=== PATIENT | male | born 1955 | race Caucasian/White ===

== ENCOUNTER 2016-09-08 19:24 | Inpatient (IN) ==
[2016-09-08] MEDS ORDERED: ASPIRIN PO STA (19:36)
[2016-09-08 19:50] LABS: MANUAL DIFF NEEDED? NO
[2016-09-08 19:54] LABS: BASO% 0.5 % (0.0-0.8); EOS# 0.14 X1000 (0.0-0.7); EOS% 2.1 % (0.0-10.0); HEMATOCRIT 43.5 % (42.0-52.0); HEMOGLOBIN 14.8 g/dL (14.0-18.0); IMM GRAN# 0.02 X1000 (0.0-0.04); IMM GRAN% 0.3 % (0.0-0.5); LYMPH# 1.95 X1000 (1.2-3.4); LYMPH% 29.7 % (20.5-51.1); MCH 34.6 PG (27-31); MCV 101.6 FL (81-99); MONO# 1.03 X1000 (0.11-0.59); MONO% 15.7 % (1.7-9.3); MPV 10.7 FL (7.4-10.4); NEUT% 51.7 % (42.2-75.2); PLT 132 X1000 (130-400); RBC 4.28 XMIL (4.7-6.1)
[2016-09-08 20:04] LABS: INR 0.97; PROTIME 10.2 Seconds (9.2-11.7); PTT 24.5 Seconds (22.0-36.0)
[2016-09-08] MEDS ORDERED: LOPRESSOR IV ONE (20:13)
--- NOTE | 2016-09-08 20:19 | PROVIDER DOCUMENTATION ---
HPI-Chest Pain - General Chief Complaint: B/P Problems Stated Complaint: HIGH BLOOD PRESSURE Time Seen by Provider: 09/08/16 20:14 Source: patient Allergies/Adverse Reactions: Patient Allergies Allergy/AdvReac Type Severity Reaction Status Date / Time lisinopril Allergy SWELLING Verified 09/08/16 20:16 Home Medications: Home Medication List Medication Instructions Recorded Confirmed Last Taken Type Hydrochlorothiazide 25 mg PO DAILY #30 tablet 09/08/16 Unknown Rx - History of Present Illness-CP Nature of Presenting Problem: 61 yom c/o high blood pressure due to noncompliance with medication, chest pain , SOB, Blurred vision, and headache. Pt does not take his BP medications at home anymore due to they make his legs hurt. Mark pain does not radiate anywhere at this time. No nausea/vomiting. The SOB is only mild. With High BP patient also has headache and blurred vision. No weakness at this time. Location: reports: substernal Chest Pain Radiation: reports: no radiation Quality of Pain: reports: pressure Severity in ED: mild Onset/Duration: 4-6 hours ago Timing: still present Context/Activities at Onset: reports: light activity Modifying Factors: improves with: nothing Associated Symptoms: reports: headache, shortness of breath Review of Systems - Adult - REVIEW OF SYSTEMS - ADULT Constitutional: reports: see HPI Eyes: reports: blurred vision Ears, Nose, Mouth & Throat: reports: no symptoms reported Cardiovascular: reports: see HPI, chest pain Respiratory: reports: see HPI, shortness of breath Gastrointestinal: reports: no symptoms reported Genitourinary: reports: no symptoms reported Musculoskeletal: reports: no symptoms reported Integumentary: reports: no symptoms reported Neurological: reports: no symptoms reported All Other Systems: Reviewed and Negative Past History - Adult - PAST MEDICAL HISTORY-ADULT Review of Records: reports: Old Records Reviewed, Nursing Assessment Review, Medications Reviewed, Social history reviewed & non-contributory. Major Childhood Illnesses: reports: denies history Cardiovascular: reports: HTN Respiratory: reports: denies history Gastrointestinal: reports: denies history, other (appendectomy) Obstetrical/Gynecological: reports: denies history Genitourinary: reports: denies history Musculoskeletal: reports: denies history, other (fx right patella in the past) Neurological: reports: denies history Endocrine/Immune: reports: denies history Other Conditions: reports: denies history - IMMUNIZATION STATUS Childhood Immunizations: See Nurse Assessment Flu Vaccine: See Nurse Assessment - FAMILY HISTORY Family History: reviewed, not pertinent - SOCIAL HISTORY Smoking: cigarettes Physical Exam-General - PHYSICAL EXAM-ADULT Initial Vital Signs Reviewed: Yes - CONSTITUTIONAL General Appearance: appears well, alert, no apparent distress - EYES Eyes: PERRL/EOMI, pink conjunctivae - HEAD, EARS, NOSE, MOUTH & THROAT HENMT: normocephalic/atraumatic, moist mucous membranes, normal ENT inspection, TMs normal, pharynx normal - NECK Neck: non-tender, full range of motion, supple - RESPIRATORY Respiratory: chest non-tender, no pleuratic chest pain, no respiratory distress , no accessory muscle use, rhonchi - CARDIOVASCULAR Cardiovascular: normal peripheral pulses, regular rate, rhythm, no edema, no gallop, no JVD, no murmur - GASTROINTESTINAL (ABDOMEN) Abdominal Exam: normal bowel sounds, non tender, soft, no organomegaly, no pulsatile mass - LYMPHATIC Lymphatic: no adenopathy - MUSCULOSKELETAL Back Exam: normal inspection, no CVA tenderness, no vertebral tenderness Extremity: normal range of motion, non-tender, normal gait, normal inspection, no pedal edema, no calf tenderness, normal capillary refill, pelvis stable - SKIN Integumentary: normal color, normal turgor, warm/dry - NEUROLOGIC Neurologic: grossly normal - PSYCHIATRIC Psych/Mental Status: oriented x 3 Progress - PLAN OF CARE/RESULTS Progress/Plan/Lab Results: Vital Signs - 8 hr 09/08/16 19:26 09/08/16 22:00 09/08/16 22:15 Temperature 98.0 F 98.2 F Pulse Rate 103 H 82 77 Respiratory Rate 22 18 14 Blood Pressure 171/104 169/104 155/94 O2 Sat by Pulse Oximetry 98 98 99 09/08/16 23:28 Temperature 98.2 F Pulse Rate 87 Respiratory Rate 17 Blood Pressure 167/93 O2 Sat by Pulse Oximetry 100 Laboratory Results - last 24 hr 09/08/16 09/08/16 09/08/16 19:34 19:34 19:34 WBC 6.56 RBC 4.28 L Hgb 14.8 Hct 43.5 MCV 101.6 H MCH 34.6 H MCHC 34.0 RDW Std Deviation 14.3 Plt Count 132 MPV 10.7 H Immature Gran % (Auto) 0.3 Neut % (Auto) 51.7 Lymph % (Auto) 29.7 Sibley % (Auto) 15.7 H Eos % (Auto) 2.1 Baso % (Auto) 0.5 Immature Gran # (Auto) 0.02 Neut # (Auto) 3.39 Lymph # (Auto) 1.95 Sibley # (Auto) 1.03 H Eos # (Auto) 0.14 Baso # (Auto) 0.03 PT INR PTT (Actin FS) D-Dimer 0.65 H Sodium 142 Potassium 3.7 Chloride 93 L Carbon Dioxide 25 Anion Gap 24 BUN 7 L Creatinine 1.0 Estimated GFR/1.73 m2 > 60 BUN/Creatinine Ratio 7 Glucose 114 H Calculated Osmolality 282 Calcium 9.8 Magnesium 1.2 L Total Bilirubin 0.33 AST 98 H ALT 84 H Alkaline Phosphatase 69 Creatine Kinase 99 Troponin T Ifz-Z-Eanolmtjnfy Pept Total Protein 7.9 Albumin 4.2 Globulin 3.7 Albumin/Globulin Ratio 1.1 09/08/16 09/08/16 09/08/16 19:34 19:34 19:34 WBC RBC Hgb Hct MCV MCH MCHC RDW Std Deviation Plt Count MPV Immature Gran % (Auto) Neut % (Auto) Lymph % (Auto) Sibley % (Auto) Eos % (Auto) Baso % (Auto) Immature Gran # (Auto) Neut # (Auto) Lymph # (Auto) Sibley # (Auto) Eos # (Auto) Baso # (Auto) PT 10.2 INR 0.97 PTT (Actin FS) 24.5 D-Dimer Sodium Potassium Chloride Carbon Dioxide Anion Gap BUN Creatinine Estimated GFR/1.73 m2 BUN/Creatinine Ratio Glucose Calculated Osmolality Calcium Magnesium Total Bilirubin AST ALT Alkaline Phosphatase Creatine Kinase Troponin T < 0.010 Kut-Y-Cjhmajjyems Pept 68 Total Protein Albumin Globulin Albumin/Globulin Ratio 09/08/16 21:59 WBC RBC Hgb Hct MCV MCH MCHC RDW Std Deviation Plt Count MPV Immature Gran % (Auto) Neut % (Auto) Lymph % (Auto) Sibley % (Auto) Eos % (Auto) Baso % (Auto) Immature Gran # (Auto) Neut # (Auto) Lymph # (Auto) Sibley # (Auto) Eos # (Auto) Baso # (Auto) PT INR PTT (Actin FS) D-Dimer Sodium Potassium Chloride Carbon Dioxide Anion Gap BUN Creatinine Estimated GFR/1.73 m2 BUN/Creatinine Ratio Glucose Calculated Osmolality Calcium Magnesium Total Bilirubin AST ALT Alkaline Phosphatase Creatine Kinase Troponin T < 0.010 Zof-G-Syyjfoktdak Pept Total Protein Albumin Globulin Albumin/Globulin Ratio Orders Category Date Time Status Cardiac Monitoring DIRECTED Care 09/08/16 19:36 Active Saline Loc NOW Care 09/08/16 19:36 Active CHEST-2 VIEWS [RAD] Stat Exams 09/08/16 19:36 Completed HEAD W/O CONTRAST [CT] Stat Exams 09/08/16 20:13 Completed CBC WITH ELECTRONIC DIFF [HEME] Stat Lab 09/08/16 19:34 Completed CK PROFILE [SP CHEM] Stat Lab 09/08/16 19:34 Completed COMPREHENSIVE METABOLIC PANEL [CHEM] Stat Lab 09/08/16 19:34 Completed D-DIMER [CHEM] Stat Lab 09/08/16 19:34 Completed MAGNESIUM [CHEM] Stat Lab 09/08/16 19:34 Completed PRO B-NATRIURETIC PEPTIDE Stat Lab 09/08/16 19:34 Completed PROTIME WITH INR [COAG] Stat Lab 09/08/16 19:34 Completed PTT [COAG] Stat Lab 09/08/16 19:34 Completed TROPONIN T Stat Lab 09/08/16 19:34 Completed TROPONIN T Stat Lab 09/08/16 21:59 Completed Aspirin Med 09/08/16 19:36 Discontinued 325 mg PO STAT STA Metoprolol [Lopressor] Med 09/08/16 20:13 Discontinued 5 mg IV NOW ONE Morphine Med 09/09/16 00:06 Once 4 mg IV NOW ONE Nitroglycerin Med 09/09/16 00:04 Discontinued 1 inch TOP NOW ONE Ondansetron [Zofran] Med 09/09/16 00:06 Once 4 mg IV NOW ONE EKG [EKG] Stat Ther 09/08/16 19:30 Ordered EKG [EKG] Stat Ther 09/08/16 21:40 Ordered EKG [EKG] Stat Ther 09/08/16 23:32 Ordered Upon ready to discharge patient he became nauseated blood pressure back up, developed worse chest pain and very diaphoretic. Will admit for further evaluation. Result Diagrams: 09/08/16 19:34 09/08/16 19:34 - XRAY 1 XRAY: Bilateral XRAY Study: Chest Impression: Abnormal (Emphysema per radiologist.) - CT/MRI 1 CT Study: Head Impression: See EMR Report (No hemmorhage. Chronic microvascular changes. Per radiologist.) - CONSULTS/PCP/HOSPITALIST Notification #1 *Consult/PCP/Hospitalist*: [place] Time Discussed: 00:09 Consult Disposition: Will see in ED, Admit Departure - Departure Time of Disposition Decision: 23:23 DIAGNOSIS: Hypertension Qualifiers: Hypertension type: essential hypertension Qualified Code(s): I10 - Essential ( primary) hypertension Chest pain Qualifiers: Chest pain type: unspecified Qualified Code(s): R07.9 - Chest pain, unspecified Disposition: ADMITTED INPATIENT 09 Certified Medical Emergency: Emergent Condition: Stable Additional Freetext Instructions: Must take the BP medications at home. Get a primary care doctor to follow up and manage blood pressure ED Follow Up Instructions: You have been treated by a care provider in the Emergency Department. These instructions are being provided to you so you can have an understanding of how to care for yourself upon discharge. Upon discharge from the Emergency Department, you are responsible for making arrangements for follow-up care by a physician of your choice. Take all prescribed medications as directed. Return to the Emergency Department immediately for any new or worsening symptoms. You may call the Physician Referral phone number at [phone] to obtain a list of Physicians who are taking new patients. Prescriptions: Hydrochlorothiazide 25 mg PO DAILY #30 tablet Referrals and Follow-Ups: None,PCP [Primary Care Provider] - Discharge Education: Hypertension Attestation - Physician/ LALA Attestation Patient care was provided by Advanced Practice Provider:: Yes Advanced Practice Provider:: Romero Buckley Advanced Practice Provider documentation review:: The Mid-level provider documentation, treatment plan and medical decision making was reviewed by the physician who agrees with all treatment and medical decision making by the MLP.
[2016-09-08 20:22] LABS: AGAP 24; ALBUMIN 4.2 g/dL (3.5-5.0); ALKALINE PHOSPHATASE 69 U/L (32-122); BUN 7 mg/dL (8-22); CALCIUM 9.8 mg/dL (8.8-10.2); CHLORIDE 93 mmol/L (98-107); CK PROFILE 99 U/L (24-204); COSMO 282; GOT 98 U/L (10-34); GPT 84 U/L (10-44); MAGNESIUM 1.2 mg/dL (1.5-2.7); POTASSIUM 3.7 mmol/L (3.5-5.1); SODIUM 142 mmol/L (136-145); TCO2 25 mmol/L (25-35); TOTAL BILIRUBIN 0.33 mg/dL (0.20-1.00); TOTAL PROTEIN 7.9 g/dL (6.3-8.3)
--- NOTE | 2016-09-08 20:45 | Diag Imaging Result Document ---
PROCEDURE NAME: CHEST-2 VIEWS - 09/08/2016 FRONTAL AND LATERAL CHEST, 2 VIEWS: FINDINGS: Compared to 05/12/2010. The lungs are hyperexpanded. There is an increased AP diameter to the chest. The heart is not enlarged. The pulmonary vessels are small. No pleural effusions. No free air beneath the diaphragm. No pneumonia. IMPRESSION: Emphysema.
--- NOTE | 2016-09-08 20:50 | Diag Imaging Result Document ---
PROCEDURE NAME: HEAD W/O CONTRAST - 09/08/2016 STUDY: CT brain without contrast. PROTOCOL: Dose reduction protocol. COMPARISON: Compared to 01/05/2016. No parenchymal hemorrhage. No epidural or subdural hematoma. No subarachnoid hemorrhage. No mass identified on this noncontrasted exam. There are chronic microvascular ischemic changes. No sinus opacification. IMPRESSION: 1. No hemorrhage. 2. Chronic microvascular ischemic changes. A preliminary report was given at 8:35 p.m.
--- NOTE | 2016-09-08 22:37 | ED EKG INTERP ---
This chart was entered by Gordon Jain Scribe, acting as scribe for Xavi Vogt MD. EKG Interpretation - EKG Time of EKG reading by physician:: 19:32 EKG Read and Signed by:: Xavi Vogt EKG Interpretation (*Must complete 3 of following elements*): Abnormal ( Possible L atrial enlargement) Rate: 98 Rhythm: NSR This chart was documented by the indicated scribe, (Gordon Jain Scribe) and accurately reflects the services I performed and decisions made by meSin Robert H., MD, as attested by the provider's signature.
[2016-09-09] MEDS ORDERED: NITROGLYCERIN TOP ONE (00:04)
[2016-09-09] MEDS ORDERED: MORPHINE IV ONE (00:06)
[2016-09-09] MEDS ORDERED: ZOFRAN IV ONE (00:06)
[2016-09-09] MEDS ORDERED: LOPRESSOR IV ONE (00:16)
[2016-09-09] MEDS ORDERED: LABETALOL IV ONE ×2 (00:24→00:55)
[2016-09-09] MEDS ORDERED: MAGNESIUM SULFATE 2 GM/S.W.I. 2 GM/50 ML IVPB IV ONE (01:16)
[2016-09-09] MEDS ORDERED: TYLENOL PO PRN (02:07)
[2016-09-09] MEDS ORDERED: NORVASC PO ONE (02:07)
[2016-09-09] MEDS ORDERED: CATAPRES PO ONE (02:07)
[2016-09-09] MEDS ORDERED: ALDACTAZIDE 25/25 PO ONE (02:07)
[2016-09-09] MEDS ORDERED: ZOFRAN IV PRN (02:07)
[2016-09-09] MEDS ORDERED: NS 1,000 ML IV ONE (02:07)
[2016-09-09] MEDS ORDERED: ATIVAN IV PRN (02:07)
[2016-09-09] MEDS ORDERED: MORPHINE IV PRN (02:07)
[2016-09-09] MEDS: LOVENOX SUBQ SCH (02:36)
[2016-09-09] MEDS: PROTONIX IV SCH (02:36)
[2016-09-09] MEDS: CATAPRES PO SCH ×3 (02:36→20:00)
[2016-09-09] MEDS: NITROGLYCERIN TOP SCH ×4 (02:38→20:01)
--- NOTE | 2016-09-09 02:55 | HISTORY AND PHYSICAL ---
PRIMARY CARE PHYSICIAN: No primary care physician. REASON FOR ADMISSION: Chest pain today. HISTORY OF PRESENT ILLNESS: Mr. Baumann is a 61-year-old man with past medical history of hypertension, prior angioedema secondary to lisinopril and probable COPD. He comes in complaining of chest pain while at rest which is retrosternal and which he describes as a tightness. He states that it is nonradiating, but it was associated with nausea, no vomiting, diaphoresis, weakness, palpitations and mild shortness of breath. He said the pain has been persistent for the greater part of 5 hours and he decided to come to the ER to be evaluated. On arrival here, his blood pressure was notably elevated in the 181-190 range. He was given some metoprolol and other blood pressure medications which normalized his blood pressure. His chest pain during his stay here has resolved and he had 2 sets of troponins which were both negative. He was on its way to be discharged when he became profoundly diaphoretic, nauseous and threw up once in the ER. His chest pain then at that time recurred. As a result of this because of recurrence of his chest pain and other symptoms, he is being admitted for further evaluation. The patient informs me that he is not taking blood pressure medications for close to a year because he has no primary care physician. He denies any PND or orthopnea. He denies any cough, but admits to having some wheezes and some mild shortness of breath with exertion. No fever, no chills. REVIEW OF SYSTEMS: Admits to having a dull headache, frontal headache, not throbbing. No visual symptoms. No focal deficits noted. He also reports that his chest pain he has experienced today has no specific aggravating or relieving factors. The rest of his 12-system review was done and was essentially normal except for the findings noted in the HPI above. ALLERGIES: Lisinopril. MEDICATIONS: None. SURGERY: He has had an appendectomy, wrist surgery and right knee surgery. SOCIAL HISTORY: He is unmarried. He is practically homeless. Smokes about a pack a day. He says he drinks alcohol, about 3 beers a day. No illicit drug use. FAMILY HISTORY: Both parents have heart disease, but no family history of diabetes noted. DATA: His most recent EKG shows normal sinus rhythm with possible anteroseptal Q-waves. White count is 6000, hemoglobin and hematocrit 14 and 43, MCV 101, platelets 132,000. Chemistry initially shows a magnesium of 1.2, AST 98, ALT 84. Troponin times 2 negative. CK normal. D- dimer 0.65. PTT is normal. Head CT normal. Chest x-ray showed emphysema. PHYSICAL EXAMINATION: GENERAL: Middle-aged man, slightly disheveled, in no acute distress. He was alert and oriented with normal mood and affect. VITAL SIGNS: Blood pressure when I saw him 200/106, respirations 16, temperature was 98.1, heart rate 77. He was 99% on room air. HEENT: Head is normocephalic, atraumatic. Eyes: PERRLA, sclerae anicteric, not pale. ENT exam is grossly normal. No sinusitis. NECK: Supple. No JVD but mild hepatojugular reflux. No bruit. No thyromegaly. CHEST: Decreased air entry at both lung madrigal with expiratory wheezes. CARDIOVASCULAR: First and second heart sounds heard. No gallops. A 2/6 ejection systolic murmur heard at the apex. Rhythm is regular. ABDOMEN: Protuberant, soft, nontender. No organomegaly. Bowel sounds are normal. RECTAL: Deferred at this time. EXTREMITIES: Pulses distally in all extremities are intact with good volume and symmetric. No clubbing or peripheral cyanosis. NEUROLOGIC: Grossly intact. No focal deficits. SKIN: Intact. No breakdown lesions or edema. VASCULAR: Exam is grossly normal. ASSESSMENT: 1. Chest pain syndrome?, ischemic. 2. Hypertensive heart disease. 3. Chronic obstructive pulmonary disease. 4. Tobacco use. 5. Probable alcoholic hepatitis. PLAN: At this time will admit patient to do a thought cardiac workup. This will include echocardiogram and probable stress test if deemed necessary by nurse discharge. We will start patient on aspirin and statins. Get blood pressure under control. I will restart him on Norvasc and clonidine, the latter more because of suspicious of this patient's drinking. Will put him on p.o. p.r.n. Ativan if he becomes agitated. Start him on thiamine and multivitamins. I have ordered a GGT to confirm the extent of the patient's drinking. Although not accurate, it will give us an indication. His liver enzymes are mildly elevated and MCV is also a large. 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 For his COPD will start him on DuoNeb p.r.n. and a NicoDerm patch. The patient says he is willing to quit smoking but finds it very difficult to do so. Also ordered a urine drug screen which needs to be followed since this patient is homeless to rule possibility of illicit substances which may be causing his symptoms. cc: Anjali Henriquez MD
[2016-09-09] MEDS: DUONEB (A & A) INH PRN (03:07)
[2016-09-09 03:08] LABS: AGAP 16; BUN 8 mg/dL (8-22); CALCIUM 9.6 mg/dL (8.8-10.2); CHLORIDE 94 mmol/L (98-107); COSMO 276; POTASSIUM 3.8 mmol/L (3.5-5.1); SODIUM 138 mmol/L (136-145); TCO2 28 mmol/L (25-35)
[2016-09-09] MEDS ORDERED: PNEUMOVAX 23 IM ONE (03:08)
[2016-09-09 03:56] LABS: UR AMPHETAMINES QUAL NONE DETECTED (NONE DETECT); UR BARBITUATES QUAL NONE DETECTED (NONE DETECT); UR BENZODIAZEPIN QUAL NONE DETECTED (NONE DETECT); UR CANNABINOIDS QUAL NONE DETECTED (NONE DETECT); UR COCAINE QUAL NONE DETECTED (NONE DETECT); UR METHADONE QUAL NONE DETECTED (NONE DETECT); UR OPIATES QUAL PRESUMPTIVE POSITIVE (NONE DETECT); UR OXYCODONE QUAL NONE DETECTED (NONE DETECT); UR PCP QUAL NONE DETECTED (NONE DETECT)
[2016-09-09] MEDS: ALDACTAZIDE 25/25 PO SCH (08:01)
[2016-09-09] MEDS: THERA M PLUS PO SCH (08:01)
[2016-09-09] MEDS: NICODERM PATCH TD SCH (08:01)
[2016-09-09] MEDS: ASPIRIN PO SCH (08:01)
[2016-09-09] MEDS: THIAMINE IM SCH (08:01)
--- NOTE | 2016-09-09 15:40 | PROGRESS NOTE ---
DATE: 09/09/2016 SUBJECTIVE: The patient denied having any chest pain, is currently having some shortness of breath but no other issue. OBJECTIVE: Vital signs: Blood pressure is 139/80, pulse of 56, respirations 20, temperature 98.6 degrees, saturation of 99% on 2 L nasal cannula. General appearance: Well-developed, well- nourished white male in no acute distress. HEENT: Poor dentition. Anicteric. Clear conjunctivae. Neck: Supple. No JVD. No bruit. Cardiovascular: S1, S2. Normal rate and rhythm. No murmur, rubs, or gallops. Pulmonary: Patient has moderate wheezes bilaterally GI: Soft, nontender, nondistended. Normoactive bowel sounds. Musculoskeletal: No clubbing, cyanosis, or edema. LABORATORY: White count 6.5, hemoglobin 14.8, hematocrit of 43.5, platelets 132,000. Sodium , potassium 3.9, chloride 94, bicarb 28, BUN 8, creatinine 0.7, glucose 126. Troponin 3 sets were negative. ASSESSMENT AND PLAN: 61-year-old homeless male admitted to the hospital for shortness of breath and was found to have diaphoreses. 1. Shortness of breath consistent with chronic obstructive pulmonary disease exacerbation. Will start the patient on Solu-Medrol, duo nebulizations, oxygen p.r.n. 2. Chest pain and diaphoresis. Dr. Sierra saw the patient. We will send him for a stress test. Further workup. The patient is homeless. We will loose him for followup if we discharged him. It should be ideal to get the stress test outpatient but not in his case. 3. Hypertension. Continue Catapres, Norvasc and Maxzide. 4. Tobacco abuse. Continue nicotine patch. 5. Deep vein thrombosis prophylaxis. The patient on Lovenox. CODE STATUS: The patient is a full code.
[2016-09-09] MEDS: SOLU-MEDROL IV SCH ×2 (16:23→22:42)
[2016-09-09] MEDS: NORVASC PO SCH ×2 (16:23→18:03)
--- NOTE | 2016-09-09 19:44 | CONSULTATION ---
DATE OF CONSULTATION: 09/09/2016 IMPRESSION: 1. Chest discomfort, atypical for myocardial ischemia. Consider also chronic obstructive pulmonary disease. 2. Hypertension. 3. Chronic smoking. 4. Chronic alcohol use excessive rate. RECOMMENDATIONS: 1. Stress myocardial fusion imaging. 2. Smoking cessation strongly advised. HISTORY: This 61-year-old white male with past history of hypertension and chronic cigarette use as well as regular daily excessive alcohol use was admitted to emergency room for evaluation chest discomfort. He describes constant chest tightness for hours. There was no other associated discomfort. He had some nonproductive cough. He was seen in the emergency room and evaluated. He had 2 troponins which were negative and was about to be discharged. He was feeling better at that point. However prior to discharge he started having some nausea and was subsequently admitted for further workup. He still relates some low-grade chest tightness. Serial troponins have been normal. PAST MEDICAL HISTORY: Hypertension. PAST SURGICAL HISTORY: Includes appendectomy and surgery for right wrist fracture. MEDICATIONS: Prior to admission none. SOCIAL HISTORY: He is homeless. He smokes a pack cigarettes per day. He drinks about a six-pack of beer per day. FAMILY HISTORY: Positive for coronary disease and his mother suffered a myocardial infarction age 50. REVIEW OF SYSTEMS: Pulmonary: Noteworthy for exertional dyspnea which is chronic. He has had some nonproductive cough. Gastrointestinal: Noteworthy some recent nausea. Constitutional: Negative. The remainder of review of systems negative/noncontributory with 14 total systems reviewed. PHYSICAL EXAMINATION: General: This is a middle-aged male in no distress. Vital Signs: As recorded. HEENT Exam: Extraocular movements intact. Mucous membranes are moist. Neck: Supple without JV distention. There are no carotid bruits. Chest: Auscultation chest reveals diffuse faint wheezes. Cardiac Exam: Reveals a regular rate and rhythm without appreciable murmur or gallop. Abdomen: Soft, nontender. Bowel sounds are normal. Extremities: Without edema. Neurologic Exam: Reveals him to be alert, fully oriented. Speech is fluent. He moves all 4 extremities equally well. Skin: Warm and dry. Psychiatric: Exam reveals his mood to be appropriate. DATA: ECG demonstrates sinus rhythm is within normal limits. Lab data includes initial troponin of less than 0.01. Followup troponin less than 0.01. cc: Edgar iSerra MD
[2016-09-09] MEDS: LIPITOR PO SCH (20:01)
[2016-09-10] MEDS: NITROGLYCERIN TOP SCH ×4 (02:09→20:06)
[2016-09-10] MEDS: LOVENOX SUBQ SCH (02:09)
[2016-09-10] MEDS: PROTONIX IV SCH (02:09)
--- NOTE | 2016-09-10 02:18 | ECHO REPORT ---
ORDER DATE: 09/09/2016 MEASUREMENTS: Left ventricular end-diastolic diameter 4.3, and systolic diameter 2.7. Posterior wall thickness 1.3, septal thickness 1.5, left atrium 4.8, aortic root 3.6. SUMMARY: 1. Technically difficult study due to limited acoustic window quality. 2. Trileaflet aortic valve is sclerotic, but opens adequately on 2-dimensional images, with peak gradient of 14 mmHg. Mitral, tricuspid, and pulmonic valves are without structural abnormality, with trace tricuspid regurgitation. The estimated systolic PA pressure by Doppler is 30 mmHg. The aortic root is normal in size. 3. Normal left ventricular chamber size, with mild concentric left hypertrophy suggested on 2-D images. Estimated left ventricular ejection fraction approximately 65%. No regional wall motion abnormalities are evident. Doppler suggests normal left ventricular diastolic function. Left atrium is mildly enlarged on 2-dimensional images. Right atrium and right ventricle are of normal size, with grossly preserved right ventricular systolic force. 4. No pericardial effusion. 5. Appearance of inferior vena cava suggests normal central venous pressure. CONCLUSIONS: 1. Technically difficult study. 2. Aortic valve sclerosis, without stenosis. 3. Mild concentric left ventricular hypertrophy, with an estimated left ventricular ejection fraction of 65%. 4. Mild left atrial enlargement. cc: MD Anjali Anderson MD
--- NOTE | 2016-09-10 05:27 | EKG Report ---
Test Performed on : 09/09/2016 06:29:27 AM Test Reason : CP Blood Pressure : / mmHG Vent. Rate : 063 BPM Atrial Rate : 063 BPM P-R Int : 176 ms QRS Dur : 102 ms QT Int : 434 ms P-R-T Axes : 073 053 035 degrees QTc Int : 444 ms Normal sinus rhythm. Normal ECG When compared with ECG of 08-SEP-2016 23:36, (Unconfirmed) No significant change was found Confirmed by Leny SALES, Keith Terrazas ([id number]) on 09/10/2016 6:44:54 PM
[2016-09-10] MEDS: SOLU-MEDROL IV SCH ×2 (05:42→16:20)
[2016-09-10 05:47] LABS: HEMOGLOBIN 14.7 g/dL (14.0-18.0); LYMPH# 0.42 X1000 (1.2-3.4); MANUAL DIFF NEEDED? NO; MCH 34.8 PG (27-31); MCHC 34.2 g/dL (33-37); MCV 101.9 FL (81-99); MONO# 0.15 X1000 (0.11-0.59); MONO% 2.5 % (1.7-9.3); MPV 10.7 FL (7.4-10.4); NEUT% 90.5 % (42.2-75.2); PLT 107 X1000 (130-400); RBC 4.22 XMIL (4.7-6.1)
--- NOTE | 2016-09-10 06:13 | EKG Report ---
Test Performed on : 09/08/2016 11:36:07 PM Test Reason : syncope Blood Pressure : / mmHG Vent. Rate : 091 BPM Atrial Rate : 091 BPM P-R Int : 178 ms QRS Dur : 098 ms QT Int : 368 ms P-R-T Axes : 073 053 064 degrees QTc Int : 452 ms Normal sinus rhythm. Possible Left atrial enlargement Borderline ECG When compared with ECG of 08-SEP-2016 21:50, (Unconfirmed) No significant change was found Unconfirmed Result
--- NOTE | 2016-09-10 06:21 | EKG Report ---
Test Performed on : 09/08/2016 7:32:40 PM Test Reason : CP Blood Pressure : / mmHG Vent. Rate : 098 BPM Atrial Rate : 098 BPM P-R Int : 168 ms QRS Dur : 092 ms QT Int : 350 ms P-R-T Axes : 075 056 060 degrees QTc Int : 446 ms Normal sinus rhythm. Possible Left atrial enlargement Borderline ECG When compared with ECG of 24-JAN-2016 04:40, Vent. rate has increased BY 43 BPM Unconfirmed Result
--- NOTE | 2016-09-10 06:22 | EKG Report ---
Test Performed on : 09/08/2016 9:50:30 PM Test Reason : repeat Blood Pressure : / mmHG Vent. Rate : 072 BPM Atrial Rate : 072 BPM P-R Int : 180 ms QRS Dur : 090 ms QT Int : 394 ms P-R-T Axes : 075 051 055 degrees QTc Int : 431 ms Normal sinus rhythm. with sinus arrhythmia. Normal ECG When compared with ECG of 08-SEP-2016 19:32, (Unconfirmed) No significant change was found Unconfirmed Result
[2016-09-10] MEDS: DUONEB (A & A) INH PRN ×2 (07:27→15:17)
[2016-09-10] MEDS ORDERED: LEXISCAN ONE (08:23)
[2016-09-10] MEDS: CATAPRES PO SCH ×2 (10:59→20:06)
[2016-09-10] MEDS: NORVASC PO SCH (10:59)
[2016-09-10] MEDS: ASPIRIN PO SCH (10:59)
[2016-09-10] MEDS: THERA M PLUS PO SCH (10:59)
[2016-09-10] MEDS: ALDACTAZIDE 25/25 PO SCH (10:59)
[2016-09-10] MEDS: NICODERM PATCH TD SCH (11:00)
[2016-09-10] MEDS: THIAMINE IM SCH (11:00)
--- NOTE | 2016-09-10 15:32 | Diag Imaging Result Document ---
PROCEDURE NAME: MYOCARDIAL PERF SCAN, STR/REST - 09/09/2016 TEST: Lexiscan Cardiolite stress test. TECHNIQUE: Lexiscan was infused per standard protocol. There was no chest pain. Stress electrocardiogram was negative for ischemia. Following Lexiscan infusion, Cardiolite was injected. 14.2 mCi of Cardiolite was injected for the rest phase. 43.5 mCi of Cardiolite was injected for the stress phase. Gated SPECT images were obtained in standard views. Images revealed significant chest wall attenuation. There is a low-grade, fixed defect in the inferoapical portion. In addition, there is some reversibility associated as well. This is likely to represent a mixed defect; however, there is significant chest wall attenuation. This could represent attenuation defect as well. Left ventricular ejection fraction 65%. Wall motion was normal. CONCLUSIONS: 1. No chest pain. 2. Negative Lexiscan stress electrocardiogram. 3. There is a low-grade small-sized mixed defect in the left ventricular apex in the inferior wall (inferoapical wall), which is associated with significant chest wall attenuation and wall motion is normal. This could represent an attenuation defect. Low probability of ischemia which cannot be ruled out. 4. Would recommend clinical correlation. 5. Left ventricular ejection fraction 65%. cc: MD Edgar Gary MD
--- NOTE | 2016-09-10 18:49 | PROGRESS NOTE ---
DATE: 09/10/2016 SUBJECTIVE: This patient is resting comfortably on the bed. Currently, he is not having chest pain. He is having mild shortness of breath, but compared with yesterday is much better. OBJECTIVE: Vital Signs: Temperature 98.3 degrees, pulse 67, respiratory rate 18, blood pressure 134/71, O2 saturation 97% on 2 L of nasal cannula. HEENT: Head normocephalic. No trauma. PERRLA. Neck: Supple. No JVD or central trachea. Cardiovascular: Regular rhythm and rate. No murmurs. Chest: Clear to auscultation. No wheezing. Clear to auscultation. Scattered end expiratory wheezing at the level of the upper lungs. No rales. Abdomen: Soft, nontender, nondistended. No hepatosplenomegaly. Extremities: No edema. No clubbing. No cyanosis. Neurological: The patient is alert and oriented x3. No focal neurological deficits. LABORATORY: WBC 6, hemoglobin 14.7, hematocrit 43, platelets 107,000. ASSESSMENT AND PLAN: 1. Chest pain, this patient had a stress test done today that did not show any abnormality. He is not complaining of chest pain. We will continue with the same treatment. 2. Shortness of breath, likely secondary to chronic obstructive pulmonary disease exacerbation. Today he is feeling much better. I will continue with steroids, but I will switch the IV medication to p.o. We will continue with nebulization and oxygen. 3. Hypertension. Continue with the same management. 4. Tobacco abuse. This patient has been highly advised against tobacco abuse. We will continue with daily cessation education. 5. Deep venous thrombosis prophylaxis. This patient is on Lovenox. cc: Jordy Valentine MD
[2016-09-10] MEDS: LIPITOR PO SCH (20:06)
--- NOTE | 2016-09-11 04:15 | PROGRESS NOTE ---
DATE: 09/10/2016 SUMMARY: The patient continues without further chest discomfort. He is having some mild shortness of breath. OBJECTIVE: Vital Signs: Blood pressure 134/71, heart rate 67 and regular. Neck: There is no significant jugular venous distention. Chest: Clear to auscultation. No evidence of peripheral edema. Stress sestamibi study negative for evidence of inducible myocardial ischemia. Indicated normal left ventricular systolic function. IMPRESSION: 1. Chest discomfort atypical for myocardial ischemia. Stress myocardial infusion imaging negative for inducible myocardial ischemia. Suspect discomfort more likely related chronic obstructive pulmonary disease as his dyspnea symptoms. 2. Hypertension. 3. Chronic cigarette use. 4. Chronic alcohol use at excessive rate. RECOMMENDATIONS: 1. Smoking cessation strongly advised. 2. Manage chronic obstructive pulmonary disease, as you are doing. 3. Will see further on an as needed basis. cc: Edgar Sierra MD
[2016-09-11] MEDS: SODIUM CHLORIDE 0.9% INJ SCH (04:18)
[2016-09-11] MEDS: PROTONIX IV SCH (04:18)
[2016-09-11] MEDS: NITROGLYCERIN TOP SCH ×4 (04:18→21:51)
[2016-09-11] MEDS: LOVENOX SUBQ SCH (04:18)
[2016-09-11 07:37] LABS: MANUAL DIFF NEEDED? NO
[2016-09-11 07:42] LABS: BASO% 0.1 % (0.0-0.8); EOS# 0.02 X1000 (0.0-0.7); EOS% 0.2 % (0.0-10.0); HEMATOCRIT 41.2 % (42.0-52.0); HEMOGLOBIN 13.9 g/dL (14.0-18.0); LYMPH# 1.15 X1000 (1.2-3.4); LYMPH% 12.8 % (20.5-51.1); MCH 34.4 PG (27-31); MCHC 33.7 g/dL (33-37); MONO# 0.79 X1000 (0.11-0.59); MONO% 8.8 % (1.7-9.3); NEUT% 78.1 % (42.2-75.2); PLT 100 X1000 (130-400); RBC 4.04 XMIL (4.7-6.1)
[2016-09-11 07:57] LABS: AGAP 13; BUN 16 mg/dL (8-22); CALCIUM 9.9 mg/dL (8.8-10.2); CHLORIDE 94 mmol/L (98-107); COSMO 282; SODIUM 139 mmol/L (136-145); TCO2 32 mmol/L (25-35)
[2016-09-11] MEDS: THIAMINE IM SCH (09:24)
[2016-09-11] MEDS: THERA M PLUS PO SCH (09:27)
[2016-09-11] MEDS: CATAPRES PO SCH ×2 (09:27→20:22)
[2016-09-11] MEDS: ALDACTAZIDE 25/25 PO SCH (09:28)
[2016-09-11] MEDS: ASPIRIN PO SCH (09:28)
[2016-09-11] MEDS: NORVASC PO SCH (09:28)
[2016-09-11] MEDS: PREDNISONE PO SCH (09:29)
[2016-09-11] MEDS: NICODERM PATCH TD SCH (09:29)
[2016-09-11] MEDS: DUONEB (A & A) INH PRN (10:22)
--- NOTE | 2016-09-11 16:06 | PROGRESS NOTE ---
DATE: 09/11/2016 SUBJECTIVE: This patient is feeling better today. He is still complaining of mild shortness of breath, but compared with yesterday he feels better. This patient is homeless and the social media campaign manager is on board to try to get the medications for him and also placement. OBJECTIVE: Vital Signs: Temperature 98 degrees, pulse 62, respiratory rate 20, blood pressure 129/75, oxygen saturation 98 on 2 L of nasal cannula. HEENT: Head normocephalic. No trauma. PERRLA. Neck: Supple. No JVD, no masses. Central trachea. Cardiovascular: RRR. No murmurs. Chest: Clear to auscultation. Mild end-expiatory wheezing, scattered. Abdomen: Soft, nontender, nondistended. No hepatosplenomegaly. Extremities: No edema. No clubbing. No cyanosis. Neurological examination: The patient is alert and oriented x3. No focal deficits. LABORATORY: WBC 8.9, hemoglobin 13.9, hematocrit 41.2, platelets 100. Sodium 139, potassium 4, chloride 94, bicarbonate 32, BUN 16, creatinine 0.8, glucose 158, calcium 9.9. ASSESSMENT AND PLAN: 1. Chest pain. This patient had a stress test done yesterday that did not show any abnormality. He is not complaining of chest pain at this moment. Continue with the same management. 2. Shortness of breath, likely secondary to chronic obstructive pulmonary disease exacerbation. Today he is feeling better, but he is still having shortness of breath. I will continue with steroids oral. Also we will continue with respiratory therapy, nebulization, oxygen, and pulmonary toilet. 3. Hypertension. Continue with the same management. 4. Tobacco abuse. This patient has been highly advised against tobacco abuse. We will continue with daily cessation education. 5. Deep vein thrombosis prophylaxis. Continue with Lovenox. cc: Jordy Valentine MD
[2016-09-11] MEDS: LIPITOR PO SCH (20:22)
[2016-09-12] MEDS: LOVENOX SUBQ SCH (04:58)
[2016-09-12] MEDS: SODIUM CHLORIDE 0.9% INJ SCH (04:58)
[2016-09-12] MEDS: NITROGLYCERIN TOP SCH ×4 (04:58→22:26)
[2016-09-12] MEDS: PROTONIX IV SCH (04:58)
[2016-09-12 07:00] LABS: AGAP 14; BUN 18 mg/dL (8-22); CALCIUM 9.8 mg/dL (8.8-10.2); CHLORIDE 94 mmol/L (98-107); COSMO 280; POTASSIUM 3.7 mmol/L (3.5-5.1); SODIUM 137 mmol/L (136-145); TCO2 29 mmol/L (25-35)
[2016-09-12] MEDS: DUONEB (A & A) INH PRN ×2 (08:41→18:20)
[2016-09-12] MEDS: ALDACTAZIDE 25/25 PO SCH (08:54)
[2016-09-12] MEDS: CATAPRES PO SCH ×2 (08:54→20:56)
[2016-09-12] MEDS: NORVASC PO SCH (08:54)
[2016-09-12] MEDS: ASPIRIN PO SCH (08:54)
[2016-09-12] MEDS: THERA M PLUS PO SCH (08:54)
[2016-09-12] MEDS: PREDNISONE PO SCH (08:55)
[2016-09-12] MEDS: THIAMINE IM SCH (08:55)
[2016-09-12] MEDS: NICODERM PATCH TD SCH (08:55)
--- NOTE | 2016-09-12 11:37 | PROGRESS NOTE ---
DATE: 09/12/2016 SUBJECTIVE: This patient is feeling better today. He is not complaining of shortness of breath. This patient is homeless and the social media specialist is on board. They are trying to get his medications and also placement for this patient. OBJECTIVE: Vital Signs: Temperature 97.8 degrees, pulse 82, respiratory rate 23, blood pressure 126/84, oxygen saturation 99 on 2 L of nasal cannula. HEENT: Head normocephalic. No trauma. PERRLA. Neck: Supple. No JVD. No masses. Central trachea. Cardiovascular: RRR. No murmurs. Chest: Clear to auscultation. No wheezing. No rales. Abdomen: Soft, nontender, nondistended. No hepatosplenomegaly. Extremities: No edema. No clubbing. No cyanosis. Neurological: The patient is alert and oriented x3. No focal deficits. LABORATORY: Sodium 137, potassium 3.7, chloride 94, bicarbonate 29, BUN 18, creatinine 0.7 glucose 181, calcium 9.8. ASSESSMENT AND PLAN: 1. Chest pain. This patient had a stress test done 2 days ago that did not show any abnormality. He is not complaining of chest pain at this moment. Continue with the same management. 2. Shortness of breath. This is likely secondary to chronic obstructive pulmonary disease exacerbation. Today he is feeling much better. He is still on prednisone p.o. daily and breathing treatment. I will continue with oxygen therapy and pulmonary toilet as well. 3. Hypertension. Continue with the same management. 4. Tobacco abuse. This patient has been highly advised against tobacco abuse. We will continue with daily cessation education. 5. Deep vein thrombosis prophylaxis. Continue with Lovenox. cc: Jordy Valentine MD
--- NOTE | 2016-09-12 12:37 | ED EKG INTERP ---
This chart was entered by Gordon Jain Scribe, acting as scribe for Xavi Vogt MD. EKG Interpretation - EKG Time of EKG reading by physician:: 21:50 EKG Read and Signed by:: Xavi Vogt EKG Interpretation (*Must complete 3 of following elements*): Normal Rate: 72 Rhythm: NSR with sinus arrhythmia This chart was documented by the indicated scribe, (Gordon Jain Scribe) and accurately reflects the services I performed and decisions made by Sin yarbrough Robert H., MD, as attested by the provider's signature.
[2016-09-12] MEDS: LIPITOR PO SCH (20:56)
[2016-09-13] MEDS: NITROGLYCERIN TOP SCH ×2 (04:23→10:33)
[2016-09-13] MEDS: PROTONIX IV SCH (04:23)
[2016-09-13] MEDS: LOVENOX SUBQ SCH (04:23)
[2016-09-13] MEDS: SODIUM CHLORIDE 0.9% INJ SCH (04:23)
[2016-09-13 07:31] LABS: AGAP 13; BUN 21 mg/dL (8-22); CALCIUM 10.2 mg/dL (8.8-10.2); CHLORIDE 93 mmol/L (98-107); COSMO 279; POTASSIUM 3.7 mmol/L (3.5-5.1); SODIUM 134 mmol/L (136-145); TCO2 28 mmol/L (25-35)
[2016-09-13] MEDS: DUONEB (A & A) INH PRN (07:37)
[2016-09-13] MEDS: NICODERM PATCH TD SCH (10:33)
[2016-09-13] MEDS: ASPIRIN PO SCH (10:34)
[2016-09-13] MEDS: ALDACTAZIDE 25/25 PO SCH (10:34)
[2016-09-13] MEDS: THERA M PLUS PO SCH (10:35)
[2016-09-13] MEDS: PREDNISONE PO SCH (10:35)
[2016-09-13] MEDS: NORVASC PO SCH (10:35)
[2016-09-13] MEDS: CATAPRES PO SCH (10:36)
[2016-09-13] MEDS: THIAMINE IM SCH (10:36)
[2016-09-13 12:20] VITALS: BP 130/85
--- NOTE | 2016-09-14 10:12 | DISCHARGE SUMMARY ---
ADMISSION DATE: 09/09/2016 DISCHARGE DATE: 09/13/2016 CONSULTATION: Dr. Edgar Sierra with cardiology. PERTINENT PROCEDURES: 1. Head CT showed no hemorrhage, chronic microvascular ischemic changes. 2. Echocardiogram showed aortic valve sclerosis without stenosis and an EF of 65%. 3. Perfusion scan was negative. There was a low-grade, small size, mixed defect in the left ventricular apex in the inferior wall associated with chest wall attenuation and wall motion was normal. Low probability of ischemia. DISCHARGE DIAGNOSES: 1. Chest pain with a negative stress test. Continue with current medications. 2. Shortness of breath secondary to chronic obstructive pulmonary disease exacerbation. 3. Chronic obstructive pulmonary disease exacerbation, improved. 4. Hypertension. Continue medications. 5. Tobacco abuse. Patient has been educated daily on smoking cessation, as well as the means to quit. HOSPITAL COURSE: Mr. Baumann is a 61-year-old male, who carries a past medical history of hypertension, prior angioedema secondary to lisinopril, and COPD, who came to the ED complaining of chest pain while at rest, retrosternal, described as tightness, nonradiating and associated with nausea, but no vomiting, diaphoresis, weakness, palpitations. Also, some mild shortness of breath. The pain was persistent for greater than 5 hours. Came to the ED to be evaluated. In the ED, his blood pressure was noted to be 180s to 190s. He was given metoprolol. His blood pressure normalized. His chest pain resolved. He had 2 sets of troponins that were negative. On his way to be discharged, he became profoundly diaphoretic and nauseous. He threw up in the ED. His chest pain recurred. As a result of the recurrence, he was admitted with a cardiology consult with a full cardiac workup with an echocardiogram. He underwent a negative Lexiscan. They recommended smoking cessation and to continue his current medications, as well as management of his COPD. Massotherapist was involved because the patient is homeless. He does have a bike that he rides around. He was agreeable to go to a residential or to even relocate to a residential, and he would need medication assistance. The [facility] in [place] agreed to take the patient, provided him with a list of rules for staying with them. This was discussed with the patient. However, today on the day of his discharge, he states that he is no longer interested in going to a residential, that he has friends and family that he can stay with, and he has never stayed at a residential either. He will be calling a friend to pick him up at the time of discharge that he can stay with. The patient will also be getting his medications through the [facility]. VITAL SIGNS AT TIME OF HIS DISCHARGE: Temperature 97.5 degrees, heart rate 72, respirations 20, blood pressure 121/80 and O2 is 93%. DISCHARGE DIET: Healthy heart. DISCHARGE MEDICATIONS: 1. Norvasc 10 mg p.o. daily. 2. Aspirin 325 mg p.o. daily. 3. Lipitor 40 mg p.o. at bedtime. 4. Catapres 0.1 mg p.o. b.i.d. 5. Thera M Plus 1 each p.o. daily. 6. Prednisone taper. 7. Aldactazide 25/25 one each p.o. daily. FOLLOWUP: The patient is being discharged home with friends. He will need to follow up with Dr. Edgar Sierra as prescribed. The patient was offered residential at [facility] in [place] or [facility]. He has refused both. Patient can return to the ED for any worsening of symptoms. He will also need to obtain a primary care physician that he can follow up with. DISCHARGE TIME: 30 minutes. Dictated by RACHEL Medina for Jordy Valentine MD cc: MD Edgar Lynn MD
== END 2016-09-13 14:57 | disposition home or self-care (01) ==
LOC: ED 19:24 → SUATTDRO 09-09 01:31 → 3S 09-09 01:31 → 3N 09-10 17:54
PROVIDERS: ATTEND Internal Medicine